=== PATIENT | male | born 1980 | race Caucasian/White ===

== ENCOUNTER 2017-01-19 19:19 | Emergency (ER) | payer OTHER | END 2017-01-19 20:22 | disposition home or self-care (01) | LOC: D.ER 19:19 | DX: K02.9 Dental caries, unspecified (principal); K08.89 Other specified disorders of teeth and supporting structures ==

== ENCOUNTER 2017-12-04 11:44 | Emergency (ER) | payer OTHER | END 2017-12-04 13:17 | disposition home or self-care (01) | LOC: D.ER 11:44 | DX: M79.642 Pain in left hand (principal); S69.92XA Unspecified injury of left wrist, hand and finger(s), initial encounter; W23.0XXA Caught, crushed, jammed, or pinched between moving objects, initial encounter; Y93.89 Activity, other specified; Y92.89 Other specified places as the place of occurrence of the external cause; F17.200 Nicotine dependence, unspecified, uncomplicated ==

== ENCOUNTER 2018-10-29 10:33 | Emergency (ER) | payer MEDICAID ==
[~2018-10-29] VITALS: Ht 172.7 cm; Wt 79.5 kg
[2018-10-29 10:50] VITALS: Ht 172.7 cm; Wt 79.5 kg
[2018-10-29] MEDS ORDERED: VOLTAREN75 MG PO (12:32)
[2018-10-29] MEDS ORDERED: BACLOFEN20 M1 PO (12:32)
[2018-10-29 12:39] VITALS: BP 133/89
== END 2018-10-29 12:39 | disposition home or self-care (01) ==
LOC: D.ER 10:33
DX: S59.901A Unspecified injury of right elbow, initial encounter (principal); W19.XXXA Unspecified fall, initial encounter

== ENCOUNTER 2018-11-12 02:54 | Emergency (ER) | payer MEDICAID ==
[~2018-11-12] VITALS: Ht 172.7 cm; Wt 79.5 kg
[~2018-11-12 02:54] MED LIST: BACLOFEN20 M1 PO; VOLTAREN75 MG PO
[2018-11-12 03:01] VITALS: BP 143/92; Ht 172.7 cm; Wt 79.5 kg
[2018-11-12 03:22] LABS: BASOPHILS 0.2 % (0-2); EOSINOPHILS 0.7 % (0-7); HEMATOCRIT 39.7 % (42.0-54.0); HEMOGLOBIN 13.5 g/dL (13.5-17.5); IMMATURE GRANULOCYTES 0.2 % (0-5); LYMPHOCYTES 17.7 % (15-50); MCH 28.4 pg (26.0-34.0); MCV 83.4 fL (80.0-100.0); MEAN PLATELET VOLUME 9.1 fL (7.4-10.4); MONOCYTES 7.6 % (2-11); NEUTROPHILS 73.6 % (40-80); PLATELET COUNT 300 10x3/uL (130-400); RBC 4.76 10x6/uL (4.20-6.10); RDW 13.6 % (11.5-14.5); WBC 10.4 10x3/uL (4.8-10.8)
[2018-11-12 03:33] LABS: APPEARANCE CLOUDY (CLEAR); BACTERIA FEW /hpf (NONE SEEN); BILIRUBIN NEGATIVE (NEGATIVE); COLOR STRAW (YELLOW); EPITHELIAL CELLS NSEEN /hpf (0-5); GLUCOSE NEGATIVE (NEGATIVE); KETONE SMALL mg/dL (NEGATIVE); NITRITE NEGATIVE (NEGATIVE); PROTEIN TRACE mg/dL (NEGATIVE); UROBILINOGEN NORMAL (NORMAL); WHITE CELLS - URINE >50 /hpf (0-5)
[2018-11-12 03:35] LABS: ALBUMIN 4.2 g/dL (3.4-5.0); ALKALINE PHOSPHATASE 74 U/L (46-116); ALT (SGPT) 36 U/L (10-68); BILIRUBIN - TOTAL 0.44 mg/dL (0.2-1.3); CALC OSMOLALITY 276 mosm/kg (275-300); CALCIUM 9.2 mg/dL (8.5-10.1); CARBON DIOXIDE 27.4 mmol/L (21.0-32.0); CHLORIDE - SERUM 103 mmol/L (98-107); CREATININE - SERUM 1.1 mg/dL (0.6-1.3); GLUCOSE 105 mg/dL (74-106); POTASSIUM - SERUM 3.8 mmol/L (3.5-5.1); PROTEIN - SERUM 7.7 g/dL (6.4-8.2); SODIUM 138 mmol/L (136-145); UREA NITROGEN 15 mg/dL (7-18); eGFR NON AFRICAN AMERICAN 80 mL/min (90-120)
[2018-11-12 03:38] LABS: AMYLASE - SERUM 50 U/L (25-115); LIPASE 96 U/L (73-393); TROPONIN-I < 0.017 ng/mL (0.000-0.060)
[2018-11-12] MEDS ORDERED: OMNICEF300 MG PO (04:06)
== END 2018-11-12 04:12 | disposition left against medical advice (07) ==
LOC: D.ER 02:54
PROVIDERS: Family Medicine
DX: N39.0 Urinary tract infection, site not specified (principal)

== ENCOUNTER 2020-03-28 17:06 | Emergency (ER) | payer MEDICAID ==
[~2020-03-28] VITALS: Ht 172.7 cm; Wt 79.5 kg
[~2020-03-28 17:06] MED LIST changes: +OMNICEF300 MG PO
[2020-03-28 17:12] VITALS: Ht 172.7 cm; Wt 79.5 kg
[2020-03-28 18:23] VITALS: BP 137/91
[2020-03-28] MEDS ORDERED: HYDROCODON-ACE1 EA10 PO (19:18)
[2020-03-28] MEDS ORDERED: AUGMENTIN 875-11 TAB PO (19:26)
== END 2020-03-28 22:08 | disposition home or self-care (01) ==
LOC: D.ER 17:06
DX: S61.203A Unspecified open wound of left middle finger without damage to nail, initial encounter (principal); S61.205A Unspecified open wound of left ring finger without damage to nail, initial encounter; W22.8XXA Striking against or struck by other objects, initial encounter; Y93.9 Activity, unspecified; Y92.9 Unspecified place or not applicable